=== PATIENT | male | born 1980 | race Caucasian/White ===

== ENCOUNTER 2023-07-19 13:12 | Emergency (ER) | payer OTHER, SELFPAY ==
[2023-07-19 13:37] VITALS: BP 142/73
--- NOTE | 2023-07-19 13:48 | ED.PDOC.TRB ---
ED Provider Triage
-
Patient seen by provider in Triage?: Seen in Triage
43-year-old male presenting emergency department for evaluation of bilateral leg pain but stating the right leg has significant erythema and edema and pain. Went to [facility] yesterday and states they did not do much for him but he did have
an ultrasound done which was negative for DVT. He did not receive any antibiotics. No fevers, chills, rigors. Patient does note that has been self injecting testosterone into his legs. Denies any IV drug abuse. There is significant erythema and
edema to the right anterior lower leg. Seem to be most suggestive of acute cellulitis. No fevers but necrotizing fasciitis considered. IV vancomycin ordered. I told patient that he would likely need to be admitted to the hospital for further IV
antibiotics.
[2023-07-19 14:01] LABS: % Basophils 0.4 % (0-2); % Eosinophils 2.1 % (0-6); % Immature Granulocytes 0.8 % (0-0.5); % Lymphocytes 7.9 % (20.5-51.1); % Monocytes 4.7 % (1.7-9.3); % Neutrophils 84.1 % (42.2-75.2); Absolute Eosinophils 0.2 10^3/uL (0-0.7); Absolute Immature Granulocytes 0.1 10^3/uL (0-0.05); Absolute Lymphocytes 0.9 10^3/uL (1.2-3.4); Absolute Monocytes 0.5 10^3/uL (0.1-0.6); Absolute Neutrophils 9.4 10^3/uL (1.4-6.5); Hematocrit 37.4 % (39.0-52.0); Hemoglobin 12.6 g/dL (13.0-18.0); Mean Corp Hgb Conc. 33.7 g/dL (33.0-37.0); Mean Corpuscular Hgb 31.4 pg (27.0-31.0); Mean Corpuscular Volume 93.3 fL (80.0-94.0); Nucleated Red Blood Cells % 0 % (-); Platelet Count 259 10^3/uL (130-400); Red Blood Cell Count 4.01 10^6/uL (4.70-6.10); Red Cell Dist. Width 16.2 % (11.5-14.5); White Blood Cell Count 11.2 10^3/uL (4.8-10.8)
[2023-07-19 14:18] LABS: ALT (SGPT) 85 U/L (0-50); AST (SGOT) 162 U/L (17-59); Alkaline Phosphatase 55 U/L (38-126); Blood Urea Nitrogen 21 mg/dl (9-20); Calcium 8.8 mg/dl (8.4-10.2); Carbon Dioxide 25 mmol/L (22-30); Chloride 101 mmol/L (98-107); Glucose 92 mg/dl (70-99); Potassium 4.4 mmol/L (3.5-5.1); Sodium 136 mmol/L (135-145); Total Protein 6.7 g/dl (6.3-8.2); eGFR > 60.00
--- NOTE | 2023-07-19 15:10 | ED.GENMED ---
History of Present Illness
<India Koenig PA-C - Last Filed: 07/19/23 19:51>
General
Chief Complaint: Skin Problem
Source: patient
Exam Limitations: none
Time Seen by Provider: 07/19/23 15:06
Nursing documentation reviewed up to this point in time: agreed with
Travel History
Have you had any contact with someone who has COVID-19?: No
Do you have any symptoms of coronavirus? Fever > 100 degrees, chills, cough, shortness of breath, sore throat, loss of taste or smell, muscle aches, or headache?: No
History of Present Illness
History of Present Illness:
This is a 43-year-old male with a history of anxiety, depression, hypertension presenting emergency department today with concerns of a rash on his lower right leg. Patient states that this started a few ago. Patient denies any fevers or chills,
denies any pain in his leg, but does note some discomfort with walking occasionally. Patient of note, does testosterone replacement therapy injections intramuscularly every few weeks or so because in his youth, he experimented with steroid and
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 Patient denies injecting into his right calf. Patient denies fevers or chills, chest pain, shortness of breath, deep pain. Of note, patient
was seen in [facility] emergency department yesterday, and a DVT study was done which was negative, patient left A at the time because he did not feel like waiting and received antibiotic. Patient denies IV drug use.
Review of Systems
<India Koenig PA-C - Last Filed: 07/19/23 19:51>
Review of Systems
All Other Systems: ROS reviewed and negative except as documented in HPI and ROS
Phy Exam
<India Koenig PA-C - Last Filed: 07/19/23 19:51>
Physical Exam
Physical Exam:
General: Patient is well appearing and in no acute distress; non-toxic
Skin: Warm and dry, there is a erythematous rash on the right lower extremity that is hot to the touch, no open lesions
Head: Normocephalic, atraumatic
Eyes: Sclera non-icteric. EOMs intact. PERRLA.
Cardiac: Regular rate and rhythm, no murmurs, rubs, or gallops
Peripheral Vascular: Right sided ankle swelling, 2+ dorsalis pedis pulses bilaterally
Pulm: Normal respiratory effort, no wheezes, rales, or rhonchi
Abdomen: No abdominal tenderness
Musculoskeletal: No bony tenderness to palpation of bilateral upper extremities
Neuro: CN II-XII intact, no focal neurologic deficits. 5 of 5 strength in bilateral lower extremities
Psychiatric: Appropriate mood and affect.
Course
<India Koenig PA-C - Last Filed: 07/19/23 19:51>
Orders/Labs/Results
Orders:
Orders
07/19/23 13:46
CR Leg Tibia/fibula Right 2 Vw Urgent
Comment:
Reason For Exam: significant pain/edema, infection
07/19/23 13:55
CRP [C-Reactive Protein] Urgent
Complete Blood Count/With Diff Urgent
Comprehensive Metabolic Panel Urgent
ESR [Erythrocyte Sed Rate] Urgent
07/19/23 15:54
Vancomycin [Vancocin] 2,000 mg 0.9% Sodium Chloride 500 ml [Nss] 500 ml IV NOW
07/19/23 16:24
CeFAZolin 1 GRAM [Ancef] 1 gram in 5 ml IV NOW
Abnormal Lab Results
07/19/23
13:55
WBC 11.2 H 10^3/uL
(4.8-10.8)
RBC 4.01 L 10^6/uL
(4.70-6.10)
Hgb 12.6 L g/dL
(13.0-18.0)
Hct 37.4 L %
(39.0-52.0)
MCH 31.4 H pg
(27.0-31.0)
RDW 16.2 H %
(11.5-14.5)
Abs Immat Gran (auto) 0.1 H 10^3/uL
(0-0.05)
Absolute Neuts (auto) 9.4 H 10^3/uL
(1.4-6.5)
Absolute Lymphs (auto) 0.9 L 10^3/uL
(1.2-3.4)
Immature Gran % 0.8 H %
(0-0.5)
Neutrophils % 84.1 H %
(42.2-75.2)
Lymphocytes % 7.9 L %
(20.5-51.1)
BUN 21 H mg/dl
(9-20)
AST 162 H U/L
(17-59)
ALT 85 H U/L
(0-50)
C-Reactive Protein 79.80 H mg/L
(0.0-10.00)
07/19/23 13:55
07/19/23 13:55
Vital Signs
Initial and Last Documented VS:
Initial Vital Signs
Temp Pulse Resp BP Pulse Ox
98.0 F 83 16 142/73 98
07/19/23 13:37 07/19/23 13:37 07/19/23 13:37 07/19/23 13:37 07/19/23 13:37
Last Documented Vital Signs
Temp Pulse Resp BP Pulse Ox
98.0 F 68 18 102/68 95
07/19/23 13:37 07/19/23 18:10 07/19/23 18:10 07/19/23 18:10 07/19/23 18:10
<Andrew Nance MD - Last Filed: 07/19/23 19:01>
Orders/Labs/Results
Orders:
Orders
07/19/23 13:46
CR Leg Tibia/fibula Right 2 Vw Urgent
Comment:
Reason For Exam: significant pain/edema, infection
07/19/23 13:55
CRP [C-Reactive Protein] Urgent
Complete Blood Count/With Diff Urgent
Comprehensive Metabolic Panel Urgent
ESR [Erythrocyte Sed Rate] Urgent
07/19/23 15:54
Vancomycin [Vancocin] 2,000 mg 0.9% Sodium Chloride 500 ml [Nss] 500 ml IV NOW
07/19/23 16:24
CeFAZolin 1 GRAM [Ancef] 1 gram in 5 ml IV NOW
Abnormal Lab Results
07/19/23
13:55
WBC 11.2 H 10^3/uL
(4.8-10.8)
RBC 4.01 L 10^6/uL
(4.70-6.10)
Hgb 12.6 L g/dL
(13.0-18.0)
Hct 37.4 L %
(39.0-52.0)
MCH 31.4 H pg
(27.0-31.0)
RDW 16.2 H %
(11.5-14.5)
Abs Immat Gran (auto) 0.1 H 10^3/uL
(0-0.05)
Absolute Neuts (auto) 9.4 H 10^3/uL
(1.4-6.5)
Absolute Lymphs (auto) 0.9 L 10^3/uL
(1.2-3.4)
Immature Gran % 0.8 H %
(0-0.5)
Neutrophils % 84.1 H %
(42.2-75.2)
Lymphocytes % 7.9 L %
(20.5-51.1)
BUN 21 H mg/dl
(9-20)
AST 162 H U/L
(17-59)
ALT 85 H U/L
(0-50)
C-Reactive Protein 79.80 H mg/L
(0.0-10.00)
07/19/23 13:55
07/19/23 13:55
Vital Signs
Initial and Last Documented VS:
Initial Vital Signs
Temp Pulse Resp BP Pulse Ox
98.0 F 83 16 142/73 98
07/19/23 13:37 07/19/23 13:37 07/19/23 13:37 07/19/23 13:37 07/19/23 13:37
Last Documented Vital Signs
Temp Pulse Resp BP Pulse Ox
98.0 F 68 18 102/68 95
07/19/23 13:37 07/19/23 18:10 07/19/23 18:10 07/19/23 18:10 07/19/23 18:10
<India Koenig PA-C - Last Filed: 07/19/23 19:51>
*Critical Care Note
Total Time (30-74mins, 75-104mins- exclusive of procedures): Not Applicable
<India Koenig PA-C - Last Filed: 07/19/23 19:51>
Patient Management
Escalation/DeEscalation of care consider admission/obs:
This is a 43-year-old male with a history of anxiety, depression, hypertension presenting emergency department today with concerns of a rash on his lower right leg. Patient did have a DVT study done yesterday at [facility], I was able to
obtain and confirm these records via [facility] and the DVT study was negative. Considering patient has no comorbidities, no fevers or chills, his VSS, no significant leukocytosis, no systemic symptoms, he is stable for a trial of outpatient abx therapy.
He was given one dose of ancef here and was sent home on a course of keflex. Return precautions given.
ED Attending Note
<India Koenig PA-C - Last Filed: 07/19/23 19:51>
-
Portions of this chart may have been created with voice recognition software.� Occasional wrong word or��sound alike� substitutions may have occurred due to the inherent limitations of voice recognition software.
<Andrew Nance MD - Last Filed: 07/19/23 19:01>
ED Attending Note
ED Attending Note:
I saw and evaluated patient independently. Patient reports right lower extremity swelling erythema that has been worsening over the past couple of days. He was seen in outside emergency department yesterday and left AGAINST MEDICAL ADVICE as he
states he was taking too long to get the antibiotics. He returns today with similar symptoms. His right distal gamino has an area of erythema and warmth. There is no fluctuance or purulence. There is no streaking up the leg. He has good
peripheral pulses and full range of motion of the ankle. We were able to confirm from outside hospital that ultrasound ruled out DVT in the lower extremity yesterday. Given his age, lack of risk factors for decompensation, as well as normal vital
signs lack of fevers, patient deemed to be a candidate for outpatient antibiotic trial. Return precautions given for worsening symptoms
Discharge Plan
Departure
Patient Disposition: Home (Routine Discharge)
Date of Disposition: 07/19/23
Time of Disposition: 17:07
Patient with high blood pressure during this ER visit?: Yes
Condition: Good
Discharge Problem:
Cellulitis
Instructions: Cellulitis (Skin Infection), Adult (DC), BLOOD PRESSURE
Prescriptions:
New
cephalexin 500 mg capsule
500 mg PO QID 10 Days Qty: 40 0RF
No Action
propranolol 80 mg tablet
80 mg PO DAILY
ibuprofen 200 mg Capsule
600 mg PO Q6H PRN (Reason: mild pain/fever)
escitalopram oxalate 20 mg tablet
20 mg PO HS
testosterone
200 mg SC DAILY
Patient Comments:
07/19/2023: Pt states he receives this medication from [facility]
Activity Restrictions/Additional Instructions:
We sent antibiotic called Keflex to her pharmacy. Please take 1 tablet 4 times daily for 10 days. You can start this tomorrow.
Please return the emergency department should you develop fevers or chills, abdominal pain, nausea, vomiting, and acute worsening of the pain in your leg, inability to walk, deep bone pain, or any other concerning signs or symptoms.
Follow-up with your primary care provider to ensure the resolution of your symptoms.
Interventions
Interventions:
*ED COVID-19 Vaccine History Last Done: 07/19/23 13:37
*Nursing Disposition Last Done: 07/19/23 18:38
ED-Skin Assessment Last Done: 07/19/23 16:10
Discharge Date and Time
Discharge Date/Time: 07/19/23 18:39
Print Language: TAMAZIGHT
[2023-07-19 15:17] LABS: Erythrocyte Sed Rate 17 mm/hour (0-20)
[2023-07-19 15:43] VITALS: BMI 27.0
[2023-07-19] MEDS: ANCEF 5 IV (16:48)
[2023-07-19 18:10] VITALS: BP 102/68
== END 2023-07-19 18:39 | disposition home or self-care (01) ==
LOC: EMR 13:12
PROVIDERS: Physician Assistant Medical; EMERGENCY PHYSICIAN Emergency Medicine; FAMILY PHYSICIAN Nurse Practitioner Adult Health
DX: L03.115 Cellulitis of right lower limb (principal); M79.604 Pain in right leg; F32.A Depression, unspecified; F41.9 Anxiety disorder, unspecified; I10 Essential (primary) hypertension
CPT/HCPCS: 99284; 96374; 73590; 80053; 85025; 85652; 86140

== ENCOUNTER 2023-07-31 07:47 | Emergency (ER) | payer OTHER, SELFPAY ==
[2023-07-31 07:50] VITALS: BMI 26.3
[2023-07-31 07:56] VITALS: BP 136/82
--- NOTE | 2023-07-31 08:00 | ED.GENMED ---
History of Present Illness
General
Chief Complaint: Seizure
Source: patient and ambulance crew
Time Seen by Provider: 07/31/23 07:50
Travel History
Have you had any contact with someone who has COVID-19?: No
Do you have any symptoms of coronavirus? Fever > 100 degrees, chills, cough, shortness of breath, sore throat, loss of taste or smell, muscle aches, or headache?: No
History of Present Illness
History of Present Illness:
43-year-old male with past medical history of hypertension, anxiety/depression presenting to the emergency department for evaluation via EMS after he had contacted them from his house when he attempted to get up from bed and go to the shower however
he fell backwards experiencing full body shaking. Patient states that he was awake during the entire event and was able to recall all of his symptoms. EMS reports there was no ictal phase, nausea or vomiting. Patient states that over the last few
weeks he has been 'overdoing it' and admits to polysubstance abuse with Valium/Xanax and oxycodone as well as alcohol. Patient reports that this is due to life stressors including a recent divorce and troubles with work. 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 He denies any current SI, HI or hallucinations. Does state that he would be amenable to detox or further substance abuse treatment. Of note, patient
is prescribed Lexapro but states he is not very compliant with this medication.
Past History
Past History
ED Past Medical History: HTN and Psychiatric
ED Past Surgical History: Orthopedic
Social History
Tobacco: Smoker
Alcohol: Binge drinker
Drug: Narcotics and Other (Benzodiazepines)
Personal:
Living: alone
Employment: Employed
Review of Systems
Review of Systems
All Other Systems: ROS reviewed and negative except as documented in HPI and ROS
Phy Exam
Physical Exam
Physical Exam:
GENERAL: Alert , in no apparent distress, seems intoxicated
Head: Normocephalic atraumatic
EYE: conjunctiva clear
NECK: Supple
ENT: o/p clr, mmm.
CARDIAC: Borderline tachycardic rate and rhythm
LUNGS: Clear breath sounds bilaterally, no acute respiratory distress, no wheezes/rales/rhonchi
NEUROLOGICAL: Alert and oriented x 3
SKIN: Warm and dry, skin intact.
MUSCULOSKELETAL: well perfused.
PSYCH: Normal and appropriate interaction.
Scores
Heart Failure Risk
Heart Failure Risk Score: Not Applicable
Heart Score for Chest Pain Patients
STEMI patient?: Not applicable
Withdrawal Assessment of Alcohol
Withdrawal Assessment Completed?: Yes
Nausea and Vomiting: No nausea and no vomiting
Tactile Disturbances: Very mild itching, pins and needles, burning or numbness
Tremor: Not visible, but can be felt fingertip to fingertip
Auditory Disturbances: Not present
Paroxysmal Sweats: No sweat visible
Visual Disturbances: Not present
Anxiety: Mild anxiety
Headache, Fullness in Head: Not present
Agitation: Normal activity
Orientation and clouding of sensorium: Oriented and can do serial additions
Total CIWA Score: 3
Alcohol Withdrawal Medication Recommendation: Equal to MSAS Score 0-4. Monitor & re-assess q2hrs, NO MEDICATION NEEDED
Course
Orders/Labs/Results
Orders:
Orders
07/31/23 07:51
EKG [Electrocardiogram (*1)] Urgent
Reason for Study: Fatigue / Weakness
EKG- Treatment ONCE
07/31/23 07:59
Drug Screen, Urine [Urine Drug Abuse Screen] Urgent
0.9% Sodium Chloride 1000 ml [Nss] 1,000 ml IV BOLUS
07/31/23 08:08
Alcohol Urgent
Complete Blood Count/With Diff Urgent
Comprehensive Metabolic Panel Urgent
Magnesium Urgent
Abnormal Lab Results
07/31/23
08:08
WBC 13.1 H 10^3/uL
(4.8-10.8)
RBC 4.24 L 10^6/uL
(4.70-6.10)
Hct 38.9 L %
(39.0-52.0)
MCH 31.6 H pg
(27.0-31.0)
RDW 16.1 H %
(11.5-14.5)
Abs Immat Gran (auto) 0.2 H 10^3/uL
(0-0.05)
Absolute Neuts (auto) 9.8 H 10^3/uL
(1.4-6.5)
Absolute Monos (auto) 1.2 H 10^3/uL
(0.1-0.6)
Immature Gran % 1.1 H %
(0-0.5)
Lymphocytes % 10.5 L %
(20.5-51.1)
Monocytes % 9.5 H %
(1.7-9.3)
Carbon Dioxide 31 H mmol/L
(22-30)
BUN 24 H mg/dl
(9-20)
ALT 51 H U/L
(0-50)
07/31/23 08:08
07/31/23 08:08
Vital Signs
Initial and Last Documented VS:
Initial Vital Signs
Temp Pulse Resp BP Pulse Ox
98.6 F 105 16 136/82 97
07/31/23 07:56 07/31/23 07:56 07/31/23 07:56 07/31/23 07:56 07/31/23 07:56
Last Documented Vital Signs
Temp Pulse Resp BP Pulse Ox
98.6 F 98 19 153/56 97
07/31/23 07:56 07/31/23 09:30 07/31/23 09:30 07/31/23 09:00 07/31/23 09:00
MDM/Problems Addressed
Differential Diagnosis Includes:
Substance abuse, electrolyte disturbance, less likely alcohol withdrawal seizure
MDM/Problems Addressed:
43-year-old male presenting to the emergency department for evaluation with EMS who reported patient may have had a seizure however patient was fully awake alert and oriented during the full body shaking as well as no postictal phase making my
suspicion for seizure much less likely. Patient does admit to significant substance abuse. Last week had accidentally overdosed on his oral oxycodone. Patient was recently at this facility and treated for a cellulitis to his right lower leg after
he was injecting testosterone into his legs. Patient seems to be having a considerable difficult time dealing with some life stressors at the moment. He denies any suicidal ideation or homicidal ideation however he is amenable to seeking further
treatment for his substance abuse. Will check labs and treat with IV fluids. In the meantime will discuss with the [facility] to help try and facilitate some outpatient care for his substance abuse
Chronic conditions affecting care: Psychiatric illness
Acute Exacerbation and/or Progression of Chronic Illness: Psychiatric illness
*Pulse Oximetry
Patient hypoxic: no
*EKG
Interpreted by ED Provider?: Yes
Comparison EKG: no comparison EKG present
Heart Rate: 109
Rate: tachycardiac
Rhythm: sinus
[place]: normal axis
Ischemia: no ischemia
*[employer] [place] Interpretation
Rate: tachycardiac
Rhythm: sinus
*Critical Care Note
Total Time (30-74mins, 75-104mins- exclusive of procedures): Not Applicable
Data Reviewed
Review of Other/Old Records Reveals: Labs and Records
Patient Management
Escalation/DeEscalation of care consider admission/obs:
Patient seen and evaluated by [facility]. They arranged for him to start intense IOP this coming Sunday. Patient happy with plan. Stable for d/c and aware of return precautions to ED
ED Attending Note
-
Portions of this chart may have been created with voice recognition software.� Occasional wrong word or��sound alike� substitutions may have occurred due to the inherent limitations of voice recognition software.
Discharge Plan
Departure
Patient Disposition: Home (Routine Discharge)
Date of Disposition: 07/31/23
Time of Disposition: 11:27
Patient with high blood pressure during this ER visit?: Yes
Discharge Problem:
Polysubstance abuse
Instructions: Polysubstance Use Disorder (DC)
Prescriptions:
No Action
propranolol 80 mg tablet
80 mg PO DAILY
ibuprofen 200 mg Capsule
600 mg PO Q6H PRN (Reason: mild pain/fever)
escitalopram oxalate 20 mg tablet
20 mg PO HS
testosterone
200 mg SC DAILY
Patient Comments:
07/19/2023: Pt states he receives this medication from [facility]
cephalexin 500 mg capsule
500 mg PO QID 10 Days Qty: 40 0RF
Referrals:
Katrin Smalls CRNP [Family Provider] -
Interventions
Interventions:
*General Assessment Last Done: 07/31/23 07:59
*Neglect/Abuse Screening Last Done: 07/31/23 07:59
*ED COVID-19 Vaccine History Last Done: 07/31/23 07:59
ED- Cardiac Assessment Last Done: 07/31/23 08:02
ED- Neurological Assessment Last Done: 07/31/23 08:03
ED- Pulmonary Assessment Last Done: 07/31/23 08:03
Discharge Date and Time
Print Language: LUXEMBOURG[place]
[2023-07-31 08:04] VITALS: BP 158/69
[2023-07-31] MEDS: NSS 1000 IV (08:07)
[2023-07-31 08:22] LABS: % Basophils 0.3 % (0-2); % Eosinophils 3.7 % (0-6); % Immature Granulocytes 1.1 % (0-0.5); % Lymphocytes 10.5 % (20.5-51.1); % Monocytes 9.5 % (1.7-9.3); % Neutrophils 74.9 % (42.2-75.2); Absolute Eosinophils 0.5 10^3/uL (0-0.7); Absolute Immature Granulocytes 0.2 10^3/uL (0-0.05); Absolute Lymphocytes 1.4 10^3/uL (1.2-3.4); Absolute Monocytes 1.2 10^3/uL (0.1-0.6); Absolute Neutrophils 9.8 10^3/uL (1.4-6.5); Hematocrit 38.9 % (39.0-52.0); Hemoglobin 13.4 g/dL (13.0-18.0); Mean Corp Hgb Conc. 34.4 g/dL (33.0-37.0); Mean Corpuscular Hgb 31.6 pg (27.0-31.0); Mean Corpuscular Volume 91.7 fL (80.0-94.0); Mean Platelet Volume 8.3 fL (7.4-10.4); Nucleated Red Blood Cells % 0 % (-); Platelet Count 320 10^3/uL (130-400); Red Blood Cell Count 4.24 10^6/uL (4.70-6.10); Red Cell Dist. Width 16.1 % (11.5-14.5); White Blood Cell Count 13.1 10^3/uL (4.8-10.8)
[2023-07-31 08:43] LABS: ALT (SGPT) 51 U/L (0-50); AST (SGOT) 58 U/L (17-59); Albumin 4.1 g/dl (3.5-5.0); Alkaline Phosphatase 65 U/L (38-126); Blood Urea Nitrogen 24 mg/dl (9-20); Calcium 8.8 mg/dl (8.4-10.2); Carbon Dioxide 31 mmol/L (22-30); Chloride 101 mmol/L (98-107); Estimated Creatinine Clearance 108 ml/min; Glucose 92 mg/dl (70-99); Magnesium 1.9 mg/dl (1.6-2.3); Potassium 4.3 mmol/L (3.5-5.1); Sodium 137 mmol/L (135-145); Total Protein 6.8 g/dl (6.3-8.2); eGFR > 60.00
[2023-07-31 08:45] LABS: Alcohol None Detected
[2023-07-31 09:00] VITALS: BP 153/56
[2023-07-31 12:06] VITALS: BP 153/53
== END 2023-07-31 12:08 | disposition home or self-care (01) ==
LOC: EMR 07:47
PROVIDERS: Physician Assistant Medical; EMERGENCY PHYSICIAN Emergency Medicine; FAMILY PHYSICIAN Nurse Practitioner Adult Health
DX: F19.10 Other psychoactive substance abuse, uncomplicated (principal); W06.XXXA Fall from bed, initial encounter; F17.200 Nicotine dependence, unspecified, uncomplicated; I10 Essential (primary) hypertension; F41.9 Anxiety disorder, unspecified; F32.A Depression, unspecified
CPT/HCPCS: 99284; 96360; 80053; 82077; 83735; 85025; 93005

== ENCOUNTER 2023-10-21 18:46 | Emergency (ER) | payer BC, SELFPAY ==
[2023-10-21 19:00] VITALS: BP 135/78
[2023-10-21 19:02] VITALS: BMI 24.2
[2023-10-21 19:05] VITALS: BP 138/93
[2023-10-21 19:11] LABS: % Basophils 0.2 % (0-2); % Eosinophils 2.3 % (0-6); % Immature Granulocytes 0.4 % (0-0.5); % Monocytes 6.8 % (1.7-9.3); % Neutrophils 77.3 % (42.2-75.2); Absolute Eosinophils 0.2 10^3/uL (0-0.7); Absolute Lymphocytes 1.1 10^3/uL (1.2-3.4); Absolute Monocytes 0.6 10^3/uL (0.1-0.6); Absolute Neutrophils 6.3 10^3/uL (1.4-6.5); Hematocrit 45.2 % (39.0-52.0); Hemoglobin 15.6 g/dL (13.0-18.0); Mean Corp Hgb Conc. 34.5 g/dL (33.0-37.0); Mean Corpuscular Hgb 30.7 pg (27.0-31.0); Nucleated Red Blood Cells % 0 % (-); Red Blood Cell Count 5.08 10^6/uL (4.70-6.10); Red Cell Dist. Width 12.9 % (11.5-14.5); White Blood Cell Count 8.1 10^3/uL (4.8-10.8)
[2023-10-21 19:23] LABS: ALT (SGPT) 24 U/L (0-50); AST (SGOT) 32 U/L (17-59); Alkaline Phosphatase 52 U/L (38-126); Blood Urea Nitrogen 20 mg/dl (9-20); Calcium 8.2 mg/dl (8.4-10.2); Carbon Dioxide 26 mmol/L (22-30); Chloride 104 mmol/L (98-107); Estimated Creatinine Clearance 108 ml/min; Glucose 95 mg/dl (70-99); Mean Platelet Volume 9.5 fL (7.4-10.4); Sodium 144 mmol/L (135-145); Total Bilirubin 0.9 mg/dl (0.2-1.3); Total Protein 6.3 g/dl (6.3-8.2); eGFR > 60.00
[2023-10-21 19:25] LABS: Platelet Count 166 10^3/uL (130-400)
[2023-10-21 20:00] VITALS: BP 128/67
--- NOTE | 2023-10-21 20:55 | ED.GENMED ---
History of Present Illness
General
Chief Complaint: Overdose Unintentional
Time Seen by Provider: 10/21/23 20:55
History of Present Illness
History of Present Illness:
HPI: Pt came in as an overdose by EMS. He has known polysubstance abuse. He admits to using Valium, fentanyl, heroin, and cocaine. He states that he is an addict. He was not trying to harm himself. He is not suicidal. He feels that he will
start withdrawing in a few days and feels he is he is going to need Suboxone.
EXAM:
GENERAL: Well appearing in no distress
HEENT: Moist oral mucosa
CARDIOVASCULAR: No murmurs, normal heart rate, regular rhythm, No chest wall tenderness
PULMONARY: No respiratory distress, breath sounds are clear and equal
ABDOMEN: Soft with no peritoneal signs, no tenderness
NEUROLOGIC: Excellent strength all extremities, no coordination deficits
PSYCHIATRIC: Appears somewhat upset and depressed
EXTREMITIES: Nontender, no edema, moves all extremities equally
SKIN: No rash, no lesions
TIME OF INITIAL ENCOUNTER: 8:50 PM
NUMBER AND COMPLEXITY OF PROBLEMS ADDRESSED AT THE ENCOUNTER
� Chronic conditions affecting care: Polysubstance abuse, high blood pressure, anxiety/depression
� Acute Exacerbation and/or Progression of Chronic Illness: This is an acute but recurring problem
� Differential Diagnosis includes: Polysubstance abuse drug overdose, unintentional overdose
AMOUNT AND/OR COMPLEXITY OF DATA TO BE REVIEWED AND ANALYZED
� I performed an independent evaluation of and my interpretation is:
EKG:
CT:
X-rays:
Laboratory Studies: CBC, chemistries unremarkable, UDS positive
Other:
� Review of other/old records: I reviewed records, the patient was seen in the emergency department polysubstance abuse this past July�records from them indicate that he is noncompliant with Lexapro records also indicate that the
[facility] and he was to start intense outpatient treatment at that time
� Clinical information was obtained by an independent historian: Spoke to family at bedside
� Prescriptions/Medications Considered but not given:
� Further testing considered but not performed:
RISK OF COMPLICATIONS AND/OR MORBIDITY OR MORTALITY OF PATIENT MANAGEMENT
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
� Discussion with other providers: [facility]�see below
� Escalation of care including admission/observation vs risk of discharge considered: The patient did receive Narcan prior to arrival but currently is more awake and alert as of 9 PM. [facility] evaluated patient over phone and has
arranged for patient to have Suboxone induction starting on Sunday at 1:30 PM at another facility.
Past History
Past History
ED Past Medical History: HTN and Psychiatric
ED Past Surgical History: Orthopedic
Social History
Tobacco: Smoker
Alcohol: Binge drinker
Drug: Narcotics and Other (Benzodiazepines)
Personal:
Living: alone
Employment: Employed
Phy Exam
Physical Exam
Physical Exam:
See HPI
Course
Orders/Labs/Results
Orders:
Orders
10/21/23 18:53
Electrocardiogram (*1) Urgent
Reason for Study: Other
Other Reason for Exam: Overdose
10/21/23 18:54
EKG- Treatment ONCE
10/21/23 18:56
Complete Blood Count/With Diff Urgent
Comprehensive Metabolic Panel Urgent
Fentanyl, Urine Urgent
Urine Drug Abuse Screen Urgent
Date Specimen was Collected: 10/21/23
Time Specimen was Collected: 18:54
Abnormal Lab Results
10/21/23
18:56
Absolute Lymphs (auto) 1.1 L 10^3/uL
(1.2-3.4)
Neutrophils % 77.3 H %
(42.2-75.2)
Lymphocytes % 13.0 L %
(20.5-51.1)
Calcium 8.2 L mg/dl
(8.4-10.2)
Urine Opiates Screen Positive H
(Negative)
Urine Methadone Screen Positive H
(Negative)
Urine Fentanyl Screen Positive H
(Negative)
U Benzodiazepines Scrn Positive H
(Negative)
Urine Cocaine Screen Positive H
(Negative)
10/21/23 18:56
10/21/23 18:56
Vital Signs
Initial and Last Documented VS:
Initial Vital Signs
Pulse Resp Pulse Ox
62 25 98
10/21/23 18:51 10/21/23 18:51 10/21/23 18:51
Last Documented Vital Signs
Temp Pulse Resp BP Pulse Ox
98.3 F 62 17 128/67 97
10/21/23 19:05 10/21/23 21:05 10/21/23 20:45 10/21/23 20:00 10/21/23 20:45
*Critical Care Note
Total Time (30-74mins, 75-104mins- exclusive of procedures): Not Applicable
ED Attending Note
-
Portions of this chart may have been created with voice recognition software.� Occasional wrong word or��sound alike� substitutions may have occurred due to the inherent limitations of voice recognition software.
Discharge Plan
Departure
Patient Disposition: Home (Routine Discharge)
Date of Disposition: 10/21/23
Time of Disposition: 21:53
Patient with high blood pressure during this ER visit?: Yes
Discharge Problem:
Opioid overdose, Polysubstance abuse
Instructions: Opioid Overdose (DC), How to Give Naloxone, BLOOD PRESSURE
Prescriptions:
No Action
propranolol 80 mg tablet
80 mg PO DAILY
ibuprofen 200 mg Capsule
600 mg PO Q6H PRN (Reason: mild pain/fever)
escitalopram oxalate 20 mg tablet
20 mg PO HS
testosterone
200 mg SC DAILY
Patient Comments:
07/19/2023: Pt states he receives this medication from [email or web address]
cephalexin 500 mg capsule
500 mg PO QID 10 Days Qty: 40 0RF
Referrals:
UNKNOWN - PT NOT,INTERVIEWE [Family Provider] -
Activity Restrictions/Additional Instructions:
[facility] tells me that they made an appointment for you for 1:30 PM on Sunday. Basic blood work is unremarkable. Your urine drug screen is positive for opiates, methadone, fentanyl, benzodiazepines, and cocaine.
Interventions
Interventions:
*Risk Screen - Suicide Last Done: 10/21/23 19:02
*General Assessment Last Done: 10/21/23 19:02
*Neglect/Abuse Screening Last Done: 10/21/23 19:02
*ED COVID-19 Vaccine History Last Done: 10/21/23 19:02
ED- Cardiac Assessment Last Done: 10/21/23 19:06
ED- Neurological Assessment Last Done: 10/21/23 19:06
ED-Psychological Assessment Last Done: 10/21/23 19:06
ED- Pulmonary Assessment Last Done: 10/21/23 19:06
Discharge Date and Time
Print Language: SWISS
[2023-10-21 21:19] LABS: Benzodiazepines Positive (Negative); Cocaine Positive (Negative); Opiates Positive (Negative)
[2023-10-21 21:20] LABS: Amphetamines Negative (Negative); Barbiturates Negative (Negative); Buprenorphine Negative (Negative); Marijuana Negative (Negative); Methadone Positive (Negative); Methamphetamines Negative (Negative); Phencyclidine Negative (Negative); Tricyclic Antidepressants Negative (Negative)
[2023-10-21 21:40] LABS: Fentanyl, Urine Positive (Negative)
--- NOTE | 2023-10-21 22:11 | ED.ADDNOTE ---
ED Addendum
ED Addendum
ED Addendum Note:
After plan for discharge, patient voiced tremendous disappointment about not receiving Suboxone prescription. I informed him that he just was here with an overdose and I would not give Suboxone induction currently. However [facility] has arranged for
him to have induction as outpatient on Sunday but patient tells me that this was for Sunday. He is extremely concerned about going through withdrawal and thinks he would use again if he starts withdrawing. I did send a prescription for
Suboxone to his pharmacy if he does start withdrawing. However I did inform him that he was positive for methadone on his UDS and he tells me he does not regularly use methadone.
== END 2023-10-21 22:17 | disposition home or self-care (01) ==
LOC: EMR 18:46
PROVIDERS: EMERGENCY PHYSICIAN Emergency Medicine
DX: T40.2X1A Poisoning by other opioids, accidental (unintentional), initial encounter (principal); F19.10 Other psychoactive substance abuse, uncomplicated; Z59.7 Insufficient social insurance and welfare support; I10 Essential (primary) hypertension; F17.200 Nicotine dependence, unspecified, uncomplicated
CPT/HCPCS: 99284; 80053; 80306; 80307; 85025; 93005

== ENCOUNTER → 2024-02-11 03:58 | Emergency (ER) | payer SELFPAY ==
--- NOTE | 2024-02-11 04:35 | EDRN ---
Assumed care of pt. at this time. Per crisis, pt. denied suicidal/homicidal ideation, reported he uses drugs and is interested in rehab.
[2024-02-11 05:35] LABS: Amphetamines Negative (Negative); Barbiturates Negative (Negative)
[2024-02-11 05:36] LABS: Benzodiazepines Positive (Negative); Buprenorphine Positive (Negative); Cocaine Positive (Negative); Marijuana Negative (Negative); Methadone Negative (Negative); Methamphetamines Negative (Negative); Opiates Negative (Negative); Phencyclidine Negative (Negative); Tricyclic Antidepressants Negative (Negative)
[2024-02-11 05:57] LABS: Fentanyl, Urine Negative (Negative)
--- NOTE | 2024-02-11 06:18 | ED.GENMED ---
History of Present Illness
General
Chief Complaint: Hallucinations
Source: patient
Exam Limitations: none
Time Seen by Provider: 02/11/24 05:05
Nursing documentation reviewed up to this point in time: agreed with
History of Present Illness
History of Present Illness:
44 old male presents the emergency department via police escort because he was hallucinating. He states that he was high on 'street drugs'. Patient states that he gets paranoid when he takes benzodiazepines. He states he took benzodiazepines. He
states that he is 'sober 'now and does not wish to have treatment in the emergency department. He has no complaints. He specifically denies suicidal homicidal ideation, intent, or plan. Patient admits to doing benzos and cocaine. Was seen by
crisis. He declined their services stating that he was not suicidal or homicidal.
Past History
Past History
ED Past Medical History: HTN and Psychiatric
ED Past Surgical History: Orthopedic
Social History
Tobacco: Smoker
Alcohol: Binge drinker
Drug: Narcotics and Other (Benzodiazepines)
Personal:
Living: alone
Employment: Employed
Phy Exam
General Physical Exam
General Presentation: well appearing and no apparent distress
General Skin: warm and dry
General Habitus: normal
General Mental: alert
General Hydration: appears well hydrated
ENT Exam
ENT Exam: EOMI, pharynx normal, neck supple and normocephalic
Eye Exam
Eye Exam: PERRL, cornea clear and conjunctiva normal
Cardiovascular Exam
Cardiovascular Exam: regular rate/rhythm, no edema, no murmur and normal peripheral pulses
Pulmonary Exam
Pulmonary Exam: lungs clear, no respiratory distress, no rales, no crackles, no rhonchi, no stridor, no wheezing and no cough
Gastrointestinal Exam
Gastrointestinal Exam: normal bowel sounds, non tender, soft, no organomegaly, no pulsatile mass and non distended
Neurological Exam
Neurological Exam: alert, oriented x3, no motor deficits and speech normal
Musculoskeletal Exam
Musculoskeletal Exam: full ROM and no edema
Skin Exam
Skin Exam: normal color, warm/dry, no rash and no petechia
Psychiatric Exam
Psychiatric Exam: normal mood/affect
Course
Orders/Labs/Results
Orders:
Orders
02/11/24 04:06
Crisis Consult Urgent
Reason for Consult: Hallucinations/Crisis
02/11/24 04:50
Fentanyl, Urine Urgent
Urine Drug Abuse Screen Urgent
Date Specimen was Collected: 02/11/24
Time Specimen was Collected: 04:37
Abnormal Lab Results
02/11/24
04:50
Ur Buprenorphine Positive H
(Negative)
U Benzodiazepines Scrn Positive H
(Negative)
Urine Cocaine Screen Positive H
(Negative)
*Critical Care Note
Total Time (30-74mins, 75-104mins- exclusive of procedures): Not Applicable
Update Note
Update Note:
02/11/2024 0627 AM: Patient was seen by crisis. He denied suicidal homicidal ideation intent or plan. He refused their services. He states that his hallucinations are drug-induced. He has been consulted to [facility] rehab facility today. He
called a friend 'Milad 'who came to pick him up. Patient walked out of the department with a brisk and steady gait.
ED Attending Note
-
Portions of this chart may have been created with voice recognition software.� Occasional wrong word or��sound alike� substitutions may have occurred due to the inherent limitations of voice recognition software.
Discharge Plan
Departure
Prescriptions:
No Action
propranolol 80 mg tablet
80 mg PO DAILY
ibuprofen 200 mg Capsule
600 mg PO Q6H PRN (Reason: mild pain/fever)
escitalopram oxalate 20 mg tablet
20 mg PO HS
testosterone
200 mg SC DAILY
Patient Comments:
07/19/2023: Pt states he receives this medication from [facility]
cephalexin 500 mg capsule
500 mg PO QID 10 Days Qty: 40 0RF
buprenorphine-naloxone [Suboxone] 4-1 mg film
1 film buccal Q2H PRN (Reason: Pain) Qty: 6 0RF
Referrals:
NONE,* [Family Provider] -
Interventions
Interventions:
*Risk Screen - Suicide Last Done: 02/11/24 05:01
*General Assessment Last Done: 02/11/24 05:01
*Neglect/Abuse Screening Last Done: 02/11/24 05:01
ED- Fall Risk Assessment Last Done: 02/11/24 06:19
*ED COVID-19 Vaccine History Last Done: 02/11/24 05:01
*Nursing Disposition Last Done: 02/11/24 06:19
ED-Suicide Risk Assessment Last Done: 02/11/24 05:11
ED- Neurological Assessment Last Done: 02/11/24 05:03
ED-Psychological Assessment Last Done: 02/11/24 05:03
Discharge Date and Time
Print Language: FRENCH
== END ==
LOC: EMR 03:58
PROVIDERS: EMERGENCY PHYSICIAN Student in an Organized Health Care Education/Training Program
DX: R44.3 Hallucinations, unspecified (principal); F60.0 Paranoid personality disorder; F19.10 Other psychoactive substance abuse, uncomplicated; I10 Essential (primary) hypertension; F41.9 Anxiety disorder, unspecified; F32.A Depression, unspecified; F17.210 Nicotine dependence, cigarettes, uncomplicated
CPT/HCPCS: 99283; 80306; 80307

== ENCOUNTER 2024-02-20 09:24 | Emergency (ER) | payer SELFPAY ==
[2024-02-20] VITALS (10 sets, daily range): BP systolic 120–162; BP diastolic 71–103; BMI 23.6
--- NOTE | 2024-02-20 09:45 | ED.GENMED ---
History of Present Illness
General
Chief Complaint: Withdrawal Symptoms
Source: patient
Exam Limitations: none
Time Seen by Provider: 02/20/24 09:35
Nursing documentation reviewed up to this point in time: agreed with
History of Present Illness
History of Present Illness:
Patient presents to ED requesting assistance for his 'drug addiction'. Patient states that he he has been on Suboxone maintenance program for a long period of time until he relapsed 2 years ago and started abusing benzodiazepines. In addition,
patient admits to having used recently cocaine and alcohol. Denies suicidal or homicidal ideation. Denies fever or chills. Denies recent illness. Patient reported not eating well and sleeping well recently as well. Denies coughing. Denies
headache. Denies vomiting or diarrhea.
Past History
Past History
ED Past Medical History: HTN and Psychiatric
ED Past Surgical History: Orthopedic
Social History
Tobacco: Smoker
Alcohol: Binge drinker
Drug: Narcotics and Other (Benzodiazepines)
Personal:
Living: alone
Employment: Employed
Review of Systems
Review of Systems
Allergies reviewed?: Yes
All Other Systems: ROS reviewed and negative except as documented in HPI and ROS
Constitutional: Reports no symptoms; Denies fever or chills
Respiratory: Reports no symptoms
Cardiac: Reports no symptoms
ABD/GI: Reports no symptoms; Denies vomiting or diarrhea
: Reports no symptoms
Musculoskeletal: Reports no symptoms
Skin: Reports no symptoms
Neurological: Reports no symptoms; Denies headache or weakness
Phy Exam
Physical Exam
Physical Exam:
Physical Exam
General: no apparent distress, not acutely ill. afebrile
Head: nc/at. eomi
Neck: supple. normal range of motion.
Heart: s1/s2 regular rate and rhythm, no murmur. equal radial pulses.
Lungs: no acute respiratory distress. clear bilaterally
Abdomen: normal bowel sounds. not tender.
Neuro: alert and oriented x 3. no focal neurological deficits
Skin: no rash
Psychiatric: well kept. interactive and cooperative. intermittent tangential thoughts expressed
Extremities: no edema. no calf tenderness.
Course
Orders/Labs/Results
Orders:
Orders
02/20/24 09:45
0.9% Sodium Chloride 1000 ml [Nss] 1,000 ml IV BOLUS
02/20/24 10:06
Acetaminophen Urgent
Alcohol Urgent
COVID-19 Antigen Urgent
Source: Nasal Swab
Complete Blood Count/With Diff Urgent
Comprehensive Metabolic Panel Urgent
Magnesium Urgent
Salicylate Urgent
Influenza A+B Rapid Molecular Urgent
ADI Source: Nasal Swab
Specimen Description:
02/20/24 11:48
Lorazepam [Ativan] 1 mg PO NOW STA
Abnormal Lab Results
02/20/24
10:06
Abs Immat Gran (auto) 0.1 H 10^3/uL
(0-0.05)
Absolute Neuts (auto) 6.9 H 10^3/uL
(1.4-6.5)
Absolute Lymphs (auto) 0.5 L 10^3/uL
(1.2-3.4)
Immature Gran % 0.9 H %
(0-0.5)
Neutrophils % 88.4 H %
(42.2-75.2)
Lymphocytes % 6.4 L %
(20.5-51.1)
Glucose 105 H mg/dl
(70-99)
Salicylates < 1.0 L mg/dl
(2.0-20.0)
Acetaminophen < 10 L ug/ml
(10-30)
02/20/24 10:06
02/20/24 10:06
Vital Signs
Initial and Last Documented VS:
Initial Vital Signs
Temp Pulse Resp BP Pulse Ox
100.1 F 99 18 136/103 96
02/20/24 09:28 02/20/24 09:28 02/20/24 09:28 02/20/24 09:28 02/20/24 09:28
Last Documented Vital Signs
Temp Pulse Resp BP Pulse Ox
100.1 F 70 14 143/85 96
02/20/24 09:28 02/20/24 19:00 02/20/24 19:00 02/20/24 19:00 02/20/24 17:15
MDM/Problems Addressed
MDM/Problems Addressed:
Pt will be evaluated medically and request [facility] for potential rehab tx.
Pt medically cleared and accepted at rehab.
*Critical Care Note
Total Time (30-74mins, 75-104mins- exclusive of procedures): Not Applicable
ED Attending Note
-
Portions of this chart may have been created with voice recognition software.� Occasional wrong word or��sound alike� substitutions may have occurred due to the inherent limitations of voice recognition software.
Discharge Plan
Departure
Patient Disposition: Home (Routine Discharge)
Date of Disposition: 02/20/24
Time of Disposition: 19:54
Patient with high blood pressure during this ER visit?: Yes
Discharge Problem:
Polysubstance use disorder
Instructions: Drug Misuse and Addiction (DC)
Prescriptions:
No Action
propranolol 80 mg tablet
80 mg PO DAILY
ibuprofen 200 mg Capsule
600 mg PO Q6H PRN (Reason: mild pain/fever)
escitalopram oxalate 20 mg tablet
20 mg PO HS
testosterone
200 mg SC DAILY
Patient Comments:
07/19/2023: Pt states he receives this medication from [facility]
cephalexin 500 mg capsule
500 mg PO QID 10 Days Qty: 40 0RF
buprenorphine-naloxone [Suboxone] 4-1 mg film
1 film buccal Q2H PRN (Reason: Pain) Qty: 6 0RF
Referrals:
NONE,* [Family Provider] -
Interventions
Interventions:
*Risk Screen - Suicide Last Done: 02/20/24 09:28
*General Assessment Last Done: 02/20/24 09:28
*Neglect/Abuse Screening Last Done: 02/20/24 09:28
ED- Fall Risk Assessment Last Done: 02/20/24 09:58
*ED COVID-19 Vaccine History Last Done: 02/20/24 09:58
*Nursing Disposition Last Done: 02/20/24 20:03
ED- Neurological Assessment Last Done: 02/20/24 09:58
ED-Psychological Assessment Last Done: 02/20/24 09:58
Discharge Date and Time
Discharge Date/Time: 02/20/24 20:04
Print Language: BELIZEAN
[2024-02-20] MEDS: NSS 1000 IV (10:17)
[2024-02-20 10:27] LABS: COVID-19 Antigen Negative (Negative)
[2024-02-20 10:31] LABS: ALT (SGPT) 32 U/L (0-50); AST (SGOT) 51 U/L (17-59); Albumin 4.7 g/dl (3.5-5.0); Alkaline Phosphatase 60 U/L (38-126); Blood Urea Nitrogen 20 mg/dl (9-20); Calcium 8.9 mg/dl (8.4-10.2); Carbon Dioxide 28 mmol/L (22-30); Chloride 101 mmol/L (98-107); Estimated Creatinine Clearance > 125 ml/min; Glucose 105 mg/dl (70-99); Magnesium 1.9 mg/dl (1.6-2.3); Potassium 4.4 mmol/L (3.5-5.1); Sodium 138 mmol/L (135-145); Total Bilirubin 1.3 mg/dl (0.2-1.3); Total Protein 7.5 g/dl (6.3-8.2); eGFR > 60.00
[2024-02-20 10:37] LABS: % Basophils 0.1 % (0-2); % Eosinophils 0.3 % (0-6); % Immature Granulocytes 0.9 % (0-0.5); % Lymphocytes 6.4 % (20.5-51.1); % Monocytes 3.9 % (1.7-9.3); % Neutrophils 88.4 % (42.2-75.2); Absolute Immature Granulocytes 0.1 10^3/uL (0-0.05); Absolute Lymphocytes 0.5 10^3/uL (1.2-3.4); Absolute Monocytes 0.3 10^3/uL (0.1-0.6); Absolute Neutrophils 6.9 10^3/uL (1.4-6.5); Hematocrit 45.4 % (39.0-52.0); Hemoglobin 15.2 g/dL (13.0-18.0); Mean Corp Hgb Conc. 33.5 g/dL (33.0-37.0); Mean Corpuscular Hgb 30.5 pg (27.0-31.0); Mean Corpuscular Volume 91.2 fL (80.0-94.0); Nucleated Red Blood Cells % 0 % (-); Platelet Count 283 10^3/uL (130-400); Red Blood Cell Count 4.98 10^6/uL (4.70-6.10); Red Cell Dist. Width 13.6 % (11.5-14.5); White Blood Cell Count 7.8 10^3/uL (4.8-10.8)
[2024-02-20 11:22] LABS: Acetaminophen < 10 ug/ml (10-30); Salicylate < 1.0 mg/dl (2.0-20.0)
[2024-02-20 11:24] LABS: Alcohol None Detected
[2024-02-20] MEDS: ATIVAN 1 MG PO (11:58)
== END 2024-02-20 20:04 | disposition home or self-care (01) ==
LOC: EMR 09:24
PROVIDERS: EMERGENCY PHYSICIAN Emergency Medicine
DX: F13.10 Sedative, hypnotic or anxiolytic abuse, uncomplicated (principal); F19.10 Other psychoactive substance abuse, uncomplicated; Z11.52 Encounter for screening for COVID-19; I10 Essential (primary) hypertension; F41.9 Anxiety disorder, unspecified; F32.A Depression, unspecified; F17.200 Nicotine dependence, unspecified, uncomplicated
CPT/HCPCS: 99285; 96360; 80053; 80143; 80179; 82077; 83735; 85025; 87502; 87811

== ENCOUNTER 2025-02-09 21:34 | Emergency (ER) | payer MEDICAID, SELFPAY ==
[2025-02-09 21:35] VITALS: BP 147/96
[2025-02-09 21:40] VITALS: BP 147/96
[2025-02-09 21:42] LABS: Glucose - Point of Care 104 mg/dl (70-99)
--- NOTE | 2025-02-09 21:46 | ED.GENMED ---
History of Present Illness
<Doc Shepherd DO - Last Filed: 02/09/25 22:01>
General
Chief Complaint: Overdose Intentional
Source: ambulance crew
Time Seen by Provider: 02/09/25 21:42
History of Present Illness
History of Present Illness:
45-year-old male presents to the emergency room with a decreased level of consciousness. Patient took some Suboxone today. Shortly thereafter he evidently shot '3 bags' of 'fentanyl'. He did evidently say this to the paramedics. He has been
administered a total of 6 mg of Narcan in the prehospital setting. Paramedics state there was really no change in his mental status after the Narcan. Patient is unresponsive and not answering questions for me.
Past History
<Doc Shepherd DO - Last Filed: 02/09/25 22:01>
Past History
ED Past Medical History: HTN and Psychiatric
ED Past Surgical History: Orthopedic
Social History
Tobacco: Smoker
Alcohol: Binge drinker
Drug: Narcotics and Other (Benzodiazepines)
Personal:
Living: alone
Employment: Employed
Phy Exam
<Doc Shepherd DO - Last Filed: 02/09/25 22:01>
Physical Exam
Physical Exam:
General: Unresponsive to sternal rub but did arouse with his pants were taken off, adequate respiratory effort
Vitals: Bradycardic
Head: Atraumatic
Eyes: Pupils equal, EOMI
Throat: Airway intact, no exudates gag reflex intact
Neck: Trachea midline
Lungs: Clear and equal b/l
Heart: Regular rate, no murmurs
Neuro: Occasionally moves all 4 extremities when stimulated
Skin: Warm, dry, no rash
Extremities: pulses equal b/l, no edema
Course
<Doc Shepherd DO - Last Filed: 02/09/25 22:01>
Orders/Labs/Results
Orders:
Orders
02/09/25 21:42
Urine Drug Abuse Screen Urgent
Date Specimen was Collected: 02/09/25
Time Specimen was Collected: 22:38
02/09/25 21:43
Electrocardiogram (*1) Urgent
Reason for Study: QTc Monitoring
EKG- Treatment ONCE
02/09/25 21:46
Acetaminophen Urgent
Alcohol Urgent
Complete Blood Count/With Diff Urgent
Comprehensive Metabolic Panel Urgent
Salicylate Urgent
Venous Blood Gas Urgent
%Oxygen/Room Air: ra
02/09/25 21:50
Naloxone [Narcan] 4 mg .ROUTE .STK-MED ONE
02/09/25 21:53
Naloxone [Narcan] 4 mg IV NOW STA
02/10/25 04:01
Fentanyl, Urine Urgent
Abnormal Lab Results
02/09/25 02/09/25 02/10/25
21:40 21:46 04:01
MCH 31.9 H pg
(27.0-31.0)
Absolute Neuts (auto) 6.9 H 10^3/uL
(1.4-6.5)
Neutrophils % 76.5 H %
(42.2-75.2)
Lymphocytes % 15.2 L %
(20.5-51.1)
VBG pCO2 49 H mmHg
(35-48)
VBG pO2 64 H mmHg
(30-50)
VBG HCO3 29.0 H mmol/L
(22-27)
Glucose 106 H mg/dl
(70-99)
Total Bilirubin 1.5 H mg/dl
(0.2-1.3)
Salicylates < 1.0 L mg/dl
(2.0-20.0)
Ur Buprenorphine Positive H
(Negative)
Urine Fentanyl Screen Positive H
(Negative)
Acetaminophen < 10 L ug/ml
(10-30)
U Benzodiazepines Scrn Positive H
(Negative)
POC Glucose 104 H mg/dl
(70-99)
02/09/25 21:46
02/09/25 21:46
Vital Signs
Initial and Last Documented VS:
Initial Vital Signs
Temp Pulse Resp BP Pulse Ox
96.6 F L 43 25 147/96 100
02/09/25 21:35 02/09/25 21:35 02/09/25 21:35 02/09/25 21:35 02/09/25 21:35
Last Documented Vital Signs
Temp Pulse Resp BP Pulse Ox
96.6 F L 67 15 114/67 97
02/09/25 21:35 02/10/25 05:00 02/10/25 05:00 02/10/25 05:00 02/10/25 05:00
<Leopoldo Chang, DO - Last Filed: 02/10/25 05:57>
Orders/Labs/Results
Orders:
Orders
02/09/25 21:42
Urine Drug Abuse Screen Urgent
Date Specimen was Collected: 02/09/25
Time Specimen was Collected: 22:38
02/09/25 21:43
Electrocardiogram (*1) Urgent
Reason for Study: QTc Monitoring
EKG- Treatment ONCE
02/09/25 21:46
Acetaminophen Urgent
Alcohol Urgent
Complete Blood Count/With Diff Urgent
Comprehensive Metabolic Panel Urgent
Salicylate Urgent
Venous Blood Gas Urgent
%Oxygen/Room Air: ra
02/09/25 21:50
Naloxone [Narcan] 4 mg .ROUTE .STK-MED ONE
02/09/25 21:53
Naloxone [Narcan] 4 mg IV NOW STA
02/10/25 04:01
Fentanyl, Urine Urgent
Abnormal Lab Results
02/09/25 02/09/25 02/10/25
21:40 21:46 04:01
MCH 31.9 H pg
(27.0-31.0)
Absolute Neuts (auto) 6.9 H 10^3/uL
(1.4-6.5)
Neutrophils % 76.5 H %
(42.2-75.2)
Lymphocytes % 15.2 L %
(20.5-51.1)
VBG pCO2 49 H mmHg
(35-48)
VBG pO2 64 H mmHg
(30-50)
VBG HCO3 29.0 H mmol/L
(22-27)
Glucose 106 H mg/dl
(70-99)
Total Bilirubin 1.5 H mg/dl
(0.2-1.3)
Salicylates < 1.0 L mg/dl
(2.0-20.0)
Ur Buprenorphine Positive H
(Negative)
Urine Fentanyl Screen Positive H
(Negative)
Acetaminophen < 10 L ug/ml
(10-30)
U Benzodiazepines Scrn Positive H
(Negative)
POC Glucose 104 H mg/dl
(70-99)
02/09/25 21:46
02/09/25 21:46
Vital Signs
Initial and Last Documented VS:
Initial Vital Signs
Temp Pulse Resp BP Pulse Ox
96.6 F L 43 25 147/96 100
02/09/25 21:35 02/09/25 21:35 02/09/25 21:35 02/09/25 21:35 02/09/25 21:35
Last Documented Vital Signs
Temp Pulse Resp BP Pulse Ox
96.6 F L 67 15 114/67 97
02/09/25 21:35 02/10/25 05:00 02/10/25 05:00 02/10/25 05:00 02/10/25 05:00
<Doc Shepherd DO - Last Filed: 02/09/25 22:01>
*Pulse Oximetry
SaO2: 100
Oxygen Mode of Delivery: Room air
<Leopoldo Chang DO - Last Filed: 02/10/25 05:57>
*Pulse Oximetry
Patient hypoxic: no
*Staffing Rn Interpretation
Rate: normal
Interpretation: normal
Rhythm: sinus
*Critical Care Note
Total Time (30-74mins, 75-104mins- exclusive of procedures): 45 minutes
<Leopoldo Chang, DO - Last Filed: 02/10/25 05:57>
Update Note
Update Note:
0030 patient received in signout and reassessed. Patient reportedly got up out of bed and went into the bathroom. On my assessment however he was in bed and remains somewhat somnolent. He is arousable by deep stimuli and is maintaining his
airway. Pulse ox 98% heart rate 61. Blood pressure normal. Pupils are narrow. He did receive Narcan without significant success. Question whether this could also be benzodiazepine overdose. Await urine drug screen. Hold off on benzodiazepine
reversal at this time because he has been taken a lot and do not want to acutely induce seizure. Continue to monitor closely.
04 15 patient reassessed and is awake alert and oriented. Admits to using fentanyl. [facility] called and will discuss with the patient
0530 patient awake alert and oriented. Offered inpatient rehab but would like to decline but will accept referral for [facility] as outpatient
ED Attending Note
<Doc Shepherd DO - Last Filed: 02/09/25 22:01>
-
Portions of this chart may have been created with voice recognition software.� Occasional wrong word or��sound alike� substitutions may have occurred due to the inherent limitations of voice recognition software.
Discharge Plan
Departure
Patient Disposition: Home (Routine Discharge)
Date of Disposition: 02/10/25
Time of Disposition: 05:55
Patient with high blood pressure during this ER visit?: No
Discharge Problem:
Opiate overdose
Instructions: How to Give Naloxone, Opioid overdose - ED (DC)
Prescriptions:
No Action
propranolol 80 mg tablet
80 mg PO DAILY
ibuprofen 200 mg Capsule
600 mg PO Q6H PRN (Reason: mild pain/fever)
escitalopram oxalate 20 mg tablet
20 mg PO HS
testosterone
200 mg SC DAILY
Patient Comments:
07/19/2023: Pt states he receives this medication from [facility]
cephalexin 500 mg capsule
500 mg PO QID 10 Days Qty: 40 0RF
buprenorphine-naloxone [Suboxone] 4-1 mg film
1 film buccal Q2H PRN (Reason: Pain) Qty: 6 0RF
Referrals:
NONE,* [Family Provider, Internal Medicine]
Activity Restrictions/Additional Instructions:
Please follow-up with vocational rehabilitation specialist. Please stop using illicit drugs and avoid narcotics. Return immediately for fevers, difficulty breathing or any other concerns.
Interventions
Interventions:
*General Assessment Last Done: 02/09/25 23:12
*Neglect/Abuse Screening Last Done: 02/09/25 23:12
*ED COVID-19 Vaccine History Last Done: 02/09/25 23:12
*ED Influenza Vaccine History Last Done: 02/09/25 23:12
[facility] Risk Assessment Tool Last Done: 02/09/25 21:34
*Risk Screen - Suicide (C-SSRS) Last Done: 02/10/25 05:02
ED- Cardiac Assessment Last Done: 02/09/25 23:12
ED- Neurological Assessment Last Done: 02/09/25 23:12
ED-Psychological Assessment Last Done: 02/09/25 23:12
ED- Pulmonary Assessment Last Done: 02/09/25 23:12
Discharge Date and Time
Print Language: GEORGIAN
[2025-02-09 21:47] VITALS: BMI 26.4
[2025-02-09 21:51] LABS: Venous Blood Gas B.E. 2.7 mmol/L (-4 to +4); Venous Blood Gas O2 Sat % 94.6 %
[2025-02-09 21:58] LABS: Hematocrit 48.4 % (39.0-52.0); Hemoglobin 16.9 g/dL (13.0-18.0); Mean Corp Hgb Conc. 34.9 g/dL (33.0-37.0); Mean Corpuscular Volume 91.3 fL (80.0-94.0); Nucleated Red Blood Cells % 0 % (-); Platelet Count 227 10^3/uL (130-400); Red Cell Dist. Width 13.1 % (11.5-14.5)
[2025-02-09 22:00] VITALS: BP 141/87
[2025-02-09] MEDS: NARCAN 4 MG IV (22:00)
[2025-02-09 22:17] LABS: ALT (SGPT) 27 U/L (0-50); AST (SGOT) 32 U/L (17-59); Acetaminophen < 10 ug/ml (10-30); Albumin 4.7 g/dl (3.5-5.0); Alkaline Phosphatase 40 U/L (38-126); Blood Urea Nitrogen 16 mg/dl (9-20); Calcium 9.5 mg/dl (8.4-10.2); Carbon Dioxide 28 mmol/L (22-30); Chloride 102 mmol/L (98-107); Estimated Creatinine Clearance 106 ml/min; Glucose 106 mg/dl (70-99); Potassium 4.5 mmol/L (3.5-5.1); Salicylate < 1.0 mg/dl (2.0-20.0); Sodium 135 mmol/L (135-145); Total Protein 7.2 g/dl (6.3-8.2); eGFR > 60.00
[2025-02-09 22:30] VITALS: BP 140/86
[2025-02-09 23:00] VITALS: BP 139/85
[2025-02-09 23:30] VITALS: BP 147/97
[2025-02-10] VITALS (13 sets, daily range): BP systolic 104–146; BP diastolic 52–96
== END 2025-02-10 06:20 | disposition home or self-care (01) ==
LOC: EMR 21:34
PROVIDERS: EMERGENCY PHYSICIAN Emergency Medicine
DX: T40.2X2A Poisoning by other opioids, intentional self-harm, initial encounter (principal); R41.82 Altered mental status, unspecified; I10 Essential (primary) hypertension; F17.200 Nicotine dependence, unspecified, uncomplicated
CPT/HCPCS: 99291; 96374; 80053; 80143; 80179; 80306; 80307; 82077; 82805; 82962; 85025; 93005